=== PATIENT | female | born 1950 | race Hispanic/Latino ===

== ENCOUNTER 2016-07-31 17:24 | Inpatient (IN) | payer MEDICARE ==
[2016-07-31] MEDS ORDERED: ATROVENT IH ONE ×2 (17:50→21:06)
[2016-07-31] MEDS ORDERED: PROVENTIL IH ONE ×2 (17:50→21:06)
--- NOTE | 2016-07-31 17:56 | Emergency Department Report ---
HPI - General Chief Complaint: Dyspnea/Respdistress Time Seen by Provider: 07/31/16 17:45 - HPI HPI: Room 3 The patient is a 66-year-old female presenting with a chief complaint of shortness of breath. The patient is status post cataract surgery today. The patient states after the surgery and while walking down a hallway she began to "feel yucky" developed shortness of breath. The patient was asked to sit down and had O2 applied. Patient denied chest pain or pleurisy at any time. The patient states the shortness of breath feels consistent with her COPD Location: Lungs Duration: [see above] Quality: Some breath, similar to previous bouts of COPD Severity: Moderate Modifying factors: [see above] Context: [see above] Mode of transportation: [not driving] ED Past Medical Hx - Past Medical History Previous Medical History?: Yes Hx COPD: Yes (2 L O2 prn) - Surgical History Past Surgical History?: Yes Additional Surgical History: cataract sx (07/31/16) - Family History Family history: no significant - Social History Smoking Status: Former Smoker (none 4.5 years) Substance Use Type: Alcohol (occasional) ED Review of Systems ROS: Stated complaint: SHORTNESS OF BREATH Other details as noted in HPI Comment: All other systems reviewed and negative Constitutional: denies: chills, fever Eyes: denies: eye pain, eye discharge, vision change ENT: denies: ear pain, throat pain Respiratory: shortness of breath Cardiovascular: denies: chest pain Endocrine: no symptoms reported Gastrointestinal: denies: abdominal pain, nausea, diarrhea Genitourinary: denies: urgency, dysuria, discharge Musculoskeletal: denies: back pain, joint swelling, arthralgia Skin: denies: rash, lesions Neurological: denies: headache, weakness, paresthesias Psychiatric: denies: anxiety, depression Hematological/Lymphatic: denies: easy bleeding, easy bruising Physical Exam - Physical Exam Vital Signs: Vital Signs 07/31/16 17:29 Temperature 97.7 F Pulse Rate 94 H Respiratory 26 H Rate Blood Pressure 119/78 O2 Sat by Pulse 97 Oximetry Physical Exam: GENERAL: The patient is well-developed well-nourished elderly female lying on stretcher with postop sunshades in place. [] HEENT: Normocephalic. Atraumatic. NECK: Supple. Trachea midline CHEST/LUNGS: Diminished throughout. Slightly increased work of breathing HEART/CARDIOVASCULAR: Regular. There is tachycardia. There is no gallop rub or murmur. ABDOMEN: There is no abdominal distention. SKIN: There is no rash. There is no edema. There is no diaphoresis. NEURO: The patient is awake, alert, and oriented. The patient is cooperative. The patient has normal speech MUSCULOSKELETAL: There is no evidence of acute injury. ED Course Vital Signs 07/31/16 17:29 Temperature 97.7 F Pulse Rate 94 H Respiratory 26 H Rate Blood Pressure 119/78 O2 Sat by Pulse 97 Oximetry - Reevaluation(s) Reevaluation #1: 07/31/16 19:20 Patient states she only feels slightly improved but still has shortness of breath. Patient still has increased work of breathing. Patient reports a normal echocardiogram last week however her proBNP is elevated today. Will obtain a CT angiogram of the chest to rule out PE Reevaluation #2: 07/31/16 21:07 Patient continues to have increased work of breathing. Will admit the patient to the hospital ED Medical Decision Making - Lab Data Result diagrams: 07/31/16 17:58 07/31/16 17:58 Laboratory Tests 07/31/16 07/31/16 07/31/16 17:58 17:58 17:58 WBC 7.8 RBC 3.33 L Hgb 11.0 Hct 33.2 MCV 100 H MCH 33 H MCHC 33 RDW 13.5 Plt Count 190 Lymph % (Auto) 7.9 L [place] % (Auto) 3.8 Eos % (Auto) 1.3 Baso % (Auto) 0.2 Lymph # 0.6 L [place] # 0.3 Eos # 0.1 Baso # 0.0 Seg Neutrophils % 86.8 H Seg Neutrophils # 6.7 PT 13.8 INR 1.07 APTT 29.2 Sodium 139 Potassium 4.4 Chloride 96.7 L Carbon Dioxide 32 H Anion Gap 15 BUN 9 Creatinine 0.4 L Estimated GFR > 60 BUN/Creatinine Ratio 22.50 Glucose 166 H Calcium 8.8 Total Creatine Kinase 87 CK-MB (CK-2) 5.2 H CK-MB (CK-2) Rel Index 5.9 H Troponin T < 0.010 NT-Pro-B Natriuret Pep 1078 H - EKG Data -: EKG Interpreted by Me EKG shows normal: sinus rhythm Rate: tachycardia (105 bpm) - EKG Data When compared to previous EKG there are: previous EKG unavailable Interpretation: other (no ischemic changes seen) - Radiology Data Radiology results: report reviewed (CT chest), image reviewed (chest x-ray, CT chest) interpreted by me: Chest x-ray-no definite focal infiltrates, no pneumothorax. Consistent with COPD CT chest (read by radiologist)-no evidence for pulmonary embolism. Extensive emphysematous changes with probable underlying chronic interstitial fibrosis. Small 4 mm subpleural nodule in the lateral left base follow-up exam in 6 months is suggested. - Differential Diagnosis COPD, pneumonia, pneumothorax, CHF Critical care attestation.: If time is entered above; I have spent that time in minutes in the direct care of this critically ill patient, excluding procedure time. ED Disposition Clinical Impression: Shortness of breath, COPD exacerbation Disposition: OP ADMITTED IP TO THIS HOSP Is pt being admited?: Yes Does the pt Need Aspirin: Yes Condition: Fair Instructions: Chronic Obstructive Pulmonary Disease (ED) Referrals: PRIMARY CARE, [Primary Care Provider] - 3-5 Days Time of Disposition: 21:09 (hospitalist paged)
[2016-07-31 18:26] LABS: INR 1.07 (0.87-1.13); Partial Thromboplastin Time 29.2 Sec. (24.2-36.6)
[2016-07-31 18:32] LABS: Creatine Kinase MB 5.2 ng/mL (0.0-4.0)
[2016-07-31 18:33] LABS: Anion Gap 15 mmol/L; Blood Urea Nitrogen 9 mg/dL (7-17); Calcium 8.8 mg/dL (8.4-10.2); Carbon Dioxide 32 mmol/L (22-30); Chloride 96.7 mmol/L (98-107); Creatine Kinase 87 units/L (30-135); Glucose 166 mg/dL (65-100); Potassium 4.4 mmol/L (3.6-5.0); Sodium 139 mmol/L (137-145)
[2016-07-31 18:46] LABS: Basophils % (Auto) 0.2 % (0.0-1.8); Eosinophils % (Auto) 1.3 % (0.0-4.3); Hematocrit 33.2 % (30.3-42.9); Mean Corpuscular HGB Conc 33 % (30-34); Mean Corpuscular Hemoglobin 33 pg (28-32); Mean Corpuscular Volume 100 fl (79-97); Platelet Count 190 K/mm3 (140-440); Red Blood Count 3.33 M/mm3 (3.65-5.03); Red Cell Distribution Width 13.5 % (13.2-15.2); White Blood Count 7.8 K/mm3 (4.5-11.0)
[2016-07-31] MEDS ORDERED: NACL ONE (19:17)
--- NOTE | 2016-07-31 20:17 | Admit Criteria Form ---
Admission Criteria Documentation: COPD Clinical Indications for Admission to Inpatient Care (Place 'X' for any and all applicable criteria): Admission is indicated for ANY ONE of the following (1)(2)(3): [ ]I. Acute exacerbation by high-risk comorbidity (e.g., pneumonia, dysrhythmia, heart failure, pleural effusion, pneumothorax) or severe underlying COPD (e.g., steroid dependent) [X]II. Inpatient admission required rather than observation care (see Chronic Obstructive Pulmonary Disease: Observation Care) because of ANY ONE of the following: [ X]a) New or pre-existing signs or symptoms of COPD (eg, dyspnea or Tachypnea at rest or with minimal activity) that persist despite outpatient and observation care treatment [ ]b) New-onset hypoxemia (room air SaO2 less than 90%, PO2 less than 60 mm Hg (8.0 kPa)) that persists despite outpatient and observation care treatment [ ]c) Worsening of pre-existing hypoxemia (eg, new or increased requirement for supplemental oxygen to maintain oxygenation at baseline level) that persists despite outpatient and observation care treatment, with oxygen treatment needs performable only in acute inpatient setting [ ]d) Hypercarbia (PCO2 greater than 40 mm Hg (5.3 kPa))-induced respiratory acidosis (pH less than 7.35) that persists despite outpatient and observation care treatment [ ]e) Supplemental oxygen or respiratory treatments for over 24 hours that are performable only in acute inpatient setting [ ]f) Chest tube placement with active evacuation (e.g., suction, drainage) (5) [ ]g) Other condition, treatment or monitoring requiring inpatient admission [ ]III. Planned invasive surgical or diagnostic procedures requiring acute- care hospitalization [ ]IV. Acute respiratory failure (e.g., uncompensated hypercarbia, severe hypoxemia) [ ]V. Severe comorbid condition (e.g., severe steroid myopathy, acute vertebral fracture) that has acutely worsened pulmonary function [ ]. Confusion state, lethargy, obtundation, stupor or coma Extended stay beyond goal length of stay may be needed for (31)(32): [ ]a ) Respiratory Failure. [ ]b) Severe or persisting hypoxemia or hypercarbia [ ]c) Severe or persistent dyspnea [ ]d) Comorbidities (e.g. chronic heart failure, atrial fibrillation with rapid response, pneumonia) [ ]e) Malnutrition The original [facility] content created by [facility] has been revised. The portions of the content which have been revised are identified through the use of italic text or in bold, and [facility] has neither reviewed nor approved the modified material. All other unmodified content is copyright [facility]. Please see references footnoted in the original [facility] edition 2016 Admission Criteria Met: Yes
--- NOTE | 2016-07-31 20:39 | Cat Scan Report ---
FINAL REPORT EXAM: CT ANGIO CHEST HISTORY: shortness of breath TECHNIQUE: Enhanced CT of the chest at 1.25 mm axial intervals following a pulmonary embolism protocol. Coronal and sagittal imaging were also obtained. Coronal oblique MIP projections were obtained. Contrast: 100 ml of Omnipaque 350 given IV. PRIORS: None. FINDINGS: There is no evidence for pulmonary embolism in the main pulmonary artery, right and left pulmonary arteries or their major distributions. However, CT does not exclude distal pulmonary emboli. There is extensive emphysematous changes noted bilaterally. There is a diffuse interstitial prominence noted bilaterally, probably chronic. There is a subpleural 4 mm nodule in the lateral left base (axial image 107). Otherwise, the lung parenchyma are expanded and clear with no evidence for parenchymal infiltrates, congestion, or pleural effusion. There is no evidence for mediastinal, hilar, or axillary adenopathy. Cardiovascular structures are within normal limits. Images through the lung bases include the upper abdomen which show no abnormalities of the visualized abdominal viscera. Bony structures demonstrate no focal abnormalities. IMPRESSION: 1. no evidence for pulmonary embolism. 2. Extensive emphysematous changes with probable underlying chronic interstitial fibrosis 3. Small 4 millimeter subpleural nodule in the lateral left base. Follow-up exam in 6 months is suggested the patient has a prior history of smoking or neoplasm.
[2016-07-31] MEDS ORDERED: MILK OF MAGNESIA PO PRN (21:39)
[2016-07-31] MEDS ORDERED: ZOFRAN IV PRN (21:39)
[2016-07-31] MEDS ORDERED: DULCOLAX PR PRN (21:39)
--- NOTE | 2016-07-31 21:45 | History and Physical Report ---
History of Present Illness Date of examination: 07/31/16 History of present illness: 66 year old woman with history of COPD on home oxygen, 2L comes to the emergency room today because after cataract surgery she became short of breath Patient denies chest pain, palpitation, cough, abdominal pain, hematochezia, dysuria, frequency, focal weakness, dysarthria, fever chills, polydipsia polyuria, hot or cold intolerance, easy bruisability, or rash or bleeding from mucosal membrane, rhinorrhea, epistaxis, earache, tinnitus, blurry vision, eye discharge, anxiety, depression. Other review of systems negative PAST SURGICAL HISTORY: Cataract extraction SOCIAL HISTORY: Denies alcohol, tobacco, drugs FAMILY HISTORY: Hypertension Medications and Allergies Allergies Allergy/AdvReac Type Severity Reaction Status Date / Time Androgenic Anabolic Steroid Allergy Unknown Verified 07/31/16 17:36 Active Meds: Active Medications Acetaminophen (Tylenol) 650 mg PO Q4H PRN PRN Reason: Pain MILD(1-3)/Fever >100.5/PARKS Albuterol/Ipratropium (Duoneb 0.5 Mg-3 Mg/3 Ml Soln) 1 ampul IH Q6HRT JEAN Bisacodyl (Dulcolax) 10 mg [place] QDAY PRN PRN Reason: Constipation unrelieved by MOM Enoxaparin Sodium (Lovenox) 30 mg SUB-Q QDAY JEAN Magnesium Hydroxide (Milk Of Magnesia) 30 ml PO Q4H PRN PRN Reason: Constipation Methylprednisolone Sodium Succinate (Solu-Medrol) 125 mg IV Q6H JEAN Ondansetron HCl (Zofran) 4 mg IV Q8H PRN PRN Reason: N/V unrelieved by Reglan Exam - Physical Exam Narrative exam: Gen. appearance: Patient lying in bed, no apparent distress HEENT: Normocephalic, atraumatic, pupils equally round and reactive to light, extraocular movement intact, and no sclericterus,. No JVD or thyromegaly or nodule,neck supple, no carotid bruit ,mucous membranes moist, no exudate or erythema Heart: S1, S2, regular rate and rhythm Lungs: Clear to auscultation bilaterally, breathing comfortable Abdomen: Positive bowel sounds, nontender, nondistended, no organomegaly Extremity: No edema, cyanosis, clubbing Skin: No rash, nodules, warm, dry Neuro: Oriented 3, cranial nerves II-12 intact, speech is fluent, motor and sensory intact - Constitutional Vitals: Temp Pulse Resp BP Pulse Ox 97.7 F 85 20 119/78 97 07/31/16 17:29 07/31/16 18:16 07/31/16 18:16 07/31/16 17:29 07/31/16 17:29 Results - Labs CBC & Chem 7: 07/31/16 17:58 07/31/16 17:58 Labs: Abnormal lab results 07/31/16 07/31/16 Range/Units 17:58 17:58 RBC 3.33 L (3.65-5.03) M/mm3 MCV 100 H (79-97) fl MCH 33 H (28-32) pg Lymph % (Auto) 7.9 L (13.4-35.0) % Lymph # 0.6 L (1.2-5.4) K/mm3 Seg Neutrophils % 86.8 H (40.0-70.0) % Chloride 96.7 L (98-107) mmol/L Carbon Dioxide 32 H (22-30) mmol/L Creatinine 0.4 L (0.7-1.2) mg/dL Glucose 166 H (65-100) mg/dL CK-MB (CK-2) 5.2 H (0.0-4.0) ng/mL CK-MB (CK-2) Rel Index 5.9 H (0-4) NT-Pro-B Natriuret Pep 1078 H (0-900) pg/mL - Imaging and Cardiology EKG: image reviewed Chest x-ray: image reviewed CT scan - chest: report reviewed Assessment and Plan COPD exacerbation Small lung nodule Status post cataract extraction Admit to medicine Start IV steroids, nebulizer treatments Follow up outpatient for small lung nodule Hold Lovenox for now
[2016-08-01] MEDS: DUONEB 0.5 MG-3 MG/3 ML SOLN IH SCH ×4 (03:18→21:10)
[2016-08-01 05:43] LABS: Hematocrit 33.8 % (30.3-42.9); Hemoglobin 11.2 gm/dl (10.1-14.3); Mean Corpuscular HGB Conc 33 % (30-34); Mean Corpuscular Hemoglobin 33 pg (28-32); Mean Corpuscular Volume 101 fl (79-97); Platelet Count 171 K/mm3 (140-440); Red Blood Count 3.36 M/mm3 (3.65-5.03); Red Cell Distribution Width 13.4 % (13.2-15.2); White Blood Count 4.9 K/mm3 (4.5-11.0)
[2016-08-01 06:06] LABS: Anion Gap 15 mmol/L; Blood Urea Nitrogen 10 mg/dL (7-17); Calcium 9.1 mg/dL (8.4-10.2); Carbon Dioxide 34 mmol/L (22-30); Chloride 99.4 mmol/L (98-107); Glucose 135 mg/dL (65-100); Potassium 4.4 mmol/L (3.6-5.0); Sodium 144 mmol/L (137-145)
[2016-08-01 06:42] LABS: Basophils % (Manual) 0 % (0.0-1.8); Blastocytes % (Manual) 0 %; Eosinophils % (Manual) 0 % (0.0-4.3); Total Cells Counted Percent 0
[2016-08-01 06:46] LABS: Anisocytosis 1+; Diff Status Complete; Stomatocytes Few
[2016-08-01] MEDS ORDERED: LOVENOX SUB-Q SCH (10:00)
--- NOTE | 2016-08-01 10:32 | XRay Report ---
AP chest x-ray. Findings: The lungs are hyperinflated and free of acute infiltrates. Mild accentuation of interstitial markings is seen. The heart and pulmonary vessels are normal. No pleural fluid is seen. Impression: COPD. No acute findings.
--- NOTE | 2016-08-01 13:43 | Progress Note ---
Assessment and Plan Assessment and plan: 66 year old woman with history of COPD on home oxygen, 2L comes to the emergency room today because after cataract surgery she became short of breath Patient denies chest pain, palpitation, cough, abdominal pain, hematochezia, dysuria, frequency, focal weakness, dysarthria, fever chills, polydipsia polyuria, hot or cold intolerance, easy bruisability, or rash or bleeding from mucosal membrane, rhinorrhea, epistaxis, earache, tinnitus, blurry vision, eye discharge, anxiety, depression. Other review of systems negative COPD exacerbation Continue steroids and nebs and antibiotics Acute on chronic hypoxic respiratory failure Continue oxygen supplementation Anxiety disorder/Panic Disorder started low dose benzodiazepines Moderate malnutrition/cachexia Patient has been encouraged to eat a balanced diet high in fats and proteins History Interval history: sob is improved, denies fever coughing or wheezing, states that she is not doing well at baseline Hospitalist Physical - Physical exam Narrative exam: General: Cachectic, unable to speak in complete sentences , appears anxious HEENT: MMM, EOMI cardiac: S1-S2 heard lungs: poor air entry, no wheezing abdomen: soft, nontender, nondistended bowel sounds positive extremities: no edema clubbing or cyanosis Skin: no rash or lesion Neuro: no focal deficit Psych: appropriate behavior and mood, cognition intact - Constitutional Vitals: Temp Pulse Resp BP Pulse Ox 98.3 F 102 H 16 102/58 100 08/01/16 08:27 08/01/16 13:21 08/01/16 13:21 08/01/16 08:27 08/01/16 08:27 Results - Labs CBC & Chem 7: 08/01/16 05:24 08/01/16 05:24 Labs: Laboratory Last Values WBC 4.9 K/mm3 (4.5-11.0) 08/01/16 05:24 RBC 3.36 M/mm3 (3.65-5.03) L 08/01/16 05:24 Hgb 11.2 gm/dl (10.1-14.3) 08/01/16 05:24 Hct 33.8 % (30.3-42.9) 08/01/16 05:24 MCV 101 fl (79-97) H 08/01/16 05:24 MCH 33 pg (28-32) H 08/01/16 05:24 MCHC 33 % (30-34) 08/01/16 05:24 RDW 13.4 % (13.2-15.2) 08/01/16 05:24 Plt Count 171 K/mm3 (140-440) 08/01/16 05:24 Lymph % (Auto) 7.9 % (13.4-35.0) L 07/31/16 17:58 [place] % (Auto) 3.8 % (0.0-7.3) 07/31/16 17:58 Eos % (Auto) 1.3 % (0.0-4.3) 07/31/16 17:58 Baso % (Auto) 0.2 % (0.0-1.8) 07/31/16 17:58 Lymph # 0.6 K/mm3 (1.2-5.4) L 07/31/16 17:58 [place] # 0.3 K/mm3 (0.0-0.8) 07/31/16 17:58 Eos # 0.1 K/mm3 (0.0-0.4) 07/31/16 17:58 Baso # 0.0 K/mm3 (0.0-0.1) 07/31/16 17:58 Add Manual Diff Complete 08/01/16 05:24 Total Counted 100 08/01/16 05:24 Seg Neutrophils % Salesperson Wigs 08/01/16 05:24 Seg Neuts % (Manual) 91.0 % (40.0-70.0) H 08/01/16 05:24 Band Neutrophils % 0 % 08/01/16 05:24 Lymphocytes % (Manual) 9.0 % (13.4-35.0) L 08/01/16 05:24 Reactive Lymphs % (Man) 0 % 08/01/16 05:24 Monocytes % (Manual) 0 % (0.0-7.3) 08/01/16 05:24 Eosinophils % (Manual) 0 % (0.0-4.3) 08/01/16 05:24 Basophils % (Manual) 0 % (0.0-1.8) 08/01/16 05:24 Metamyelocytes % 0 % 08/01/16 05:24 Myelocytes % 0 % 08/01/16 05:24 Promyelocytes % 0 % 08/01/16 05:24 Blast Cells % 0 % 08/01/16 05:24 Nucleated RBC % Not Reportable 08/01/16 05:24 Seg Neutrophils # 6.7 K/mm3 (1.8-7.7) 07/31/16 17:58 Seg Neutrophils # Man 4.5 K/mm3 (1.8-7.7) 08/01/16 05:24 Band Neutrophils # 0.0 K/mm3 08/01/16 05:24 Lymphocytes # (Manual) 0.4 K/mm3 (1.2-5.4) L 08/01/16 05:24 Abs React Lymphs (Man) 0.0 K/mm3 08/01/16 05:24 Monocytes # (Manual) 0.0 K/mm3 (0.0-0.8) 08/01/16 05:24 Eosinophils # (Manual) 0.0 K/mm3 (0.0-0.4) 08/01/16 05:24 Basophils # (Manual) 0.0 K/mm3 (0.0-0.1) 08/01/16 05:24 Metamyelocytes # 0.0 K/mm3 08/01/16 05:24 Myelocytes # 0.0 K/mm3 08/01/16 05:24 Promyelocytes # 0.0 K/mm3 08/01/16 05:24 Blast Cells # 0.0 K/mm3 08/01/16 05:24 WBC Morphology Not Reportable 08/01/16 05:24 Hypersegmented Neuts Not Reportable 08/01/16 05:24 Hyposegmented Neuts Not Reportable 08/01/16 05:24 Hypogranular Neuts Not Reportable 08/01/16 05:24 Smudge Cells Not Reportable 08/01/16 05:24 Toxic Granulation Not Reportable 08/01/16 05:24 Toxic Vacuolation Not Reportable 08/01/16 05:24 Dohle Bodies Not Reportable 08/01/16 05:24 Pelger-Huet Anomaly Not Reportable 08/01/16 05:24 Kamille Rods Not Reportable 08/01/16 05:24 Platelet Estimate Appears normal 08/01/16 05:24 Clumped Platelets Not Reportable 08/01/16 05:24 Plt Clumps, EDTA Not Reportable 08/01/16 05:24 Large Platelets Not Reportable 08/01/16 05:24 Giant Platelets Not Reportable 08/01/16 05:24 Platelet Satelliting Not Reportable 08/01/16 05:24 Plt Morphology Comment Not Reportable 08/01/16 05:24 RBC Morphology Not Reportable 08/01/16 05:24 Dimorphic RBCs Not Reportable 08/01/16 05:24 Polychromasia Not Reportable 08/01/16 05:24 Hypochromasia Not Reportable 08/01/16 05:24 Poikilocytosis Not Reportable 08/01/16 05:24 Anisocytosis 1+ 08/01/16 05:24 Microcytosis Not Reportable 08/01/16 05:24 Macrocytosis Not Reportable 08/01/16 05:24 Spherocytes Not Reportable 08/01/16 05:24 Pappenheimer Bodies Not Reportable 08/01/16 05:24 Sickle Cells Not Reportable 08/01/16 05:24 Target Cells Not Reportable 08/01/16 05:24 Tear Drop Cells Not Reportable 08/01/16 05:24 Ovalocytes Not Reportable 08/01/16 05:24 Stomatocytes Few 08/01/16 05:24 Helmet Cells Not Reportable 08/01/16 05:24 [place] Bodies Not Reportable 08/01/16 05:24 [place] Rings Not Reportable 08/01/16 05:24 [place] Cells Not Reportable 08/01/16 05:24 Bite Cells Not Reportable 08/01/16 05:24 Crenated Cell Not Reportable 08/01/16 05:24 Elliptocytes Not Reportable 08/01/16 05:24 Acanthocytes (Spur) Not Reportable 08/01/16 05:24 Rouleaux Not Reportable 08/01/16 05:24 Hemoglobin C Crystals Not Reportable 08/01/16 05:24 Schistocytes Not Reportable 08/01/16 05:24 Malaria parasites Not Reportable 08/01/16 05:24 Wilfrid Bodies Not Reportable 08/01/16 05:24 Hem Pathologist Commnt No 08/01/16 05:24 PT 13.8 Sec. (12.2-14.9) 07/31/16 17:58 INR 1.07 (0.87-1.13) 07/31/16 17:58 APTT 29.2 Sec. (24.2-36.6) 07/31/16 17:58 Sodium 144 mmol/L (137-145) 08/01/16 05:24 Potassium 4.4 mmol/L (3.6-5.0) 08/01/16 05:24 Chloride 99.4 mmol/L (98-107) 08/01/16 05:24 Carbon Dioxide 34 mmol/L (22-30) H 08/01/16 05:24 Anion Gap 15 mmol/L 08/01/16 05:24 BUN 10 mg/dL (7-17) 08/01/16 05:24 Creatinine 0.4 mg/dL (0.7-1.2) L 08/01/16 05:24 Estimated GFR > 60 ml/min 08/01/16 05:24 BUN/Creatinine Ratio 25.00 % 08/01/16 05:24 Glucose 135 mg/dL (65-100) H 08/01/16 05:24 POC Glucose 150 (70-105) H 07/31/16 21:09 Calcium 9.1 mg/dL (8.4-10.2) 08/01/16 05:24 Total Creatine Kinase 87 units/L (30-135) 07/31/16 17:58 CK-MB (CK-2) 5.2 ng/mL (0.0-4.0) H 07/31/16 17:58 CK-MB (CK-2) Rel Index 5.9 (0-4) H 07/31/16 17:58 Troponin T < 0.010 ng/mL (0.00-0.029) 07/31/16 17:58 NT-Pro-B Natriuret Pep 1078 pg/mL (0-900) H 07/31/16 17:58
[2016-08-01] MEDS ORDERED: ATIVAN PO PRN (15:18)
[2016-08-01] MEDS: TYLENOL PO PRN (21:27)
[2016-08-02] MEDS: DUONEB 0.5 MG-3 MG/3 ML SOLN IH SCH ×4 (02:02→20:38)
--- NOTE | 2016-08-02 10:36 | Consultation ---
History of Present Illness Consult date: 08/02/16 Requesting physician: TK ISLAS Reason for consult: COPD History of present illness: 66 y/o female, followed by Dr. Shetty admitted yesterday with what was thought to be an acute exacerbation of COPD. Per report from patient and daughter at bedside. Had Cataract Surgery on Saturday. Had an acute episode of shortness of breath post op. was not placed on her home dose of 2LPM pre or post surgery per patient. She has not missed any meds and felt fine prior to the procedure. She was given steroids and neb treatments and admitted. CTA was done as well to rule out PE Past History Past Medical History: COPD Past Surgical History: Other (heart cath) Social history: no significant social history, Family history: no significant family history Medications and Allergies Allergies Allergy/AdvReac Type Severity Reaction Status Date / Time Androgenic Anabolic Steroid Allergy Unknown Verified 07/31/16 17:36 Home Medications Medication Instructions Recorded Confirmed Last Taken Type Stiolto Respimat Inhal [place] 3.124 mcg INHALATION DAILY 08/01/16 08/01/16 Unknown History Ventolin HFA 90 mcg INHALATION 4XD 08/01/16 08/01/16 Unknown History Active Meds: Active Medications Acetaminophen (Tylenol) 650 mg PO Q4H PRN PRN Reason: Pain MILD(1-3)/Fever >100.5/PARKS Last Admin: 08/01/16 21:27 Dose: 650 mg Albuterol/Ipratropium (Duoneb 0.5 Mg-3 Mg/3 Ml Soln) 1 ampul IH Q6HRT JEAN Last Admin: 08/02/16 08:23 Dose: 1 ampul Arformoterol Tartrate (Brovana Nebu) 15 mcg IH Q12HRT JEAN Bisacodyl (Dulcolax) 10 mg [place] QDAY PRN PRN Reason: Constipation unrelieved by MOM Budesonide (Pulmicort) 0.5 mg IH Q12HRT JEAN Lorazepam (Ativan) 0.5 mg PO Q8H JEAN Magnesium Hydroxide (Milk Of Magnesia) 30 ml PO Q4H PRN PRN Reason: Constipation Methylprednisolone Sodium Succinate (Solu-Medrol) 40 mg IV Q24H JEAN Last Admin: 08/01/16 18:00 Dose: 40 mg Ondansetron HCl (Zofran) 4 mg IV Q8H PRN PRN Reason: N/V unrelieved by Reglan Review of Systems All systems: negative Psychiatric: anxiety, insomnia, change in appetite, anxiety attacks, difficulties concentrating Physical Examination Vital signs: Vital Signs Temp Pulse Resp BP Pulse Ox 97.7 F 94 H 26 H 119/78 97 07/31/16 17:29 07/31/16 17:29 07/31/16 17:29 07/31/16 17:29 07/31/16 17:29 General appearance: no acute distress, alert, other (thin cachetic) Eyes: non-icteric ENT: oropharynx moist Neck: supple Effort: normal Ascultation: Bilateral: diminished breath sounds Percussion: Bilateral: not dull Tactile fremitus: Bilateral: normal Cardiovascular: regular rate and rhythm Gastrointestinal: normoactive bowel sounds Integumentary: normal Extremities: no edema Musculoskeletal: other (severe scoliosis) normal mental status, non-focal exam mood appropriate, affect normal Results - Laboratory Findings CBC and BMP: 08/01/16 05:24 08/01/16 05:24 PT/INR, D-dimer PT 13.8 Sec. (12.2-14.9) 07/31/16 17:58 INR 1.07 (0.87-1.13) 07/31/16 17:58 Abnormal lab findings: Abnormal Labs 08/01/16 08/01/16 05:24 05:24 RBC 3.36 L MCV 101 H MCH 33 H Seg Neuts % (Manual) 91.0 H Lymphocytes % (Manual) 9.0 L Lymphocytes # (Manual) 0.4 L Carbon Dioxide 34 H Creatinine 0.4 L Glucose 135 H - Diagnostic Findings CT scan - chest: image reviewed (Severe emphysematous changes throughout with some scarring) Assessment and Plan 66 y/o female with COPD and chronic respiratory failure, likely with anxiety attack and COPD exacerbation stemming from that. 1. Will add Pulmicort and brovana BID 2. Scheduled ativan every 8 hours 3. Continue duoneb therapy 4. PT and OT consult placed 5. Continue supplemental oxygen 6. May need to consider psych eval to help with anxiety but discuss with daughter first.
[2016-08-02] MEDS: BROVANA NEBU IH SCH ×2 (12:08→20:38)
[2016-08-02] MEDS: PULMICORT IH SCH ×2 (12:09→20:38)
--- NOTE | 2016-08-02 12:22 | Discharge Summary ---
Providers - Providers Date of Admission: 07/31/16 21:39 Attending physician: TK ISLAS MD 08/01/16 15:22 Consult to Physician [CONS] Routine Consulting Provider: STACEY SMITH Reason For Exam: copd Place consult to:: dr. smith Notified:: office Phone number called:: Was contact made?: Yes Time called:: 16:31 08/02/16 10:30 Physical Therapy Evaluation and Treat [CONS] Routine Comment: Reason For Exam: Deconditioned with COPD 08/02/16 10:31 Occupational Therapy Evaluate and Treat [CONS] Routine Comment: Reason For Exam: Deconditioned with COPD Primary care physician: IMPROVEMENT ENGINEER Hospitalization Condition: Fair Hospital course: 66 year old woman with history of COPD on home oxygen, 2L comes to the emergency room today because after cataract surgery she became short of breath, upon arrival she was unable to speak in complete sentences without having severe dyspnea she was admitted for treatment of acute exacerbation of chronic COPD. She was treated with steroids, nebulizer, antibiotics. She clinically improved and her regimen of inhalers at home where optimized, home ambulatory oxygen was set up for her, pulmonary was involved in her care. It is very likely that panic disorder/anxiety disorder is contributing to her symptoms, differential is put on low-dose anxiety medications after which she clinically improved. She was advised on a balanced diets rich in fats and proteins for treatment of malnutrition. She clinically improved and is being sent home on steroids antibiotics and a new regimen of inhalers. Discharge diagnoses COPD exacerbation Acute on chronic hypoxic respiratory failure Anxiety/Panic disorder Moderate Malnutrition/cachexia Disposition: DISCHARGED TO HOME OR SELFCARE Time spent for discharge: 35 minutes Core Measure Documentation - Palliative Care Palliative Care/ Comfort Measures: Not Applicable - Core Measures Any of the following diagnoses?: none Exam - Constitutional Vitals: Temp Pulse Resp BP Pulse Ox 97.9 F 119 H 18 105/65 96 08/02/16 08:51 08/02/16 08:51 08/02/16 08:51 08/02/16 08:51 08/02/16 08:51 General appearance: Present: no acute distress, well-nourished - EENT Eyes: Present: PERRL ENT: hearing intact, clear oral mucosa - Neck Neck: Present: supple, normal ROM - Respiratory Respiratory effort: normal Respiratory: bilateral: CTA - Cardiovascular Heart Sounds: Present: S1 & S2. Absent: rub, click - Extremities Extremities: pulses symmetrical, No edema Peripheral Pulses: within normal limits - Abdominal General gastrointestinal: Present: soft, non-tender, non-distended, normal bowel sounds Female genitourinary: Present: normal - Integumentary Integumentary: Present: clear, warm, dry - Musculoskeletal Musculoskeletal: gait normal, strength equal bilaterally - Psychiatric Psychiatric: appropriate mood/affect, intact judgment & insight - Neurologic Neurologic: CNII-XII intact, moves all extremities Plan Follow up with: PRIMARY CARE,MD [Primary Care Provider] - 3-5 Days Prescriptions: Azithromycin [Zithromax Z-LOAN] 0 mg PO DAILY #1 pack Budesoni/Formotero 160-4.5(Nf) [Symbicort 160-4.5 (Nf)] 2 puff IH BID #1 inha LORazepam [Ativan] 0.5 mg PO Q8H #30 tablet Prednisone [predniSONE 5 mg (6-Day Pack, 21 Tabs)] 5 mg PO .TAPER #1 tab.ds.pk
[2016-08-02] MEDS: ATIVAN PO SCH ×2 (14:58→19:50)
[2016-08-02] MEDS: TYLENOL PO PRN (18:21)
--- NOTE | 2016-08-02 21:54 | Progress Note ---
Assessment and Plan Assessment and plan: 66 year old woman with history of COPD on home oxygen, 2L comes to the emergency room today because after cataract surgery she became short of breath Patient denies chest pain, palpitation, cough, abdominal pain, hematochezia, dysuria, frequency, focal weakness, dysarthria, fever chills, polydipsia polyuria, hot or cold intolerance, easy bruisability, or rash or bleeding from mucosal membrane, rhinorrhea, epistaxis, earache, tinnitus, blurry vision, eye discharge, anxiety, depression. Other review of systems negative COPD exacerbation Continue steroids and nebs and antibiotics Pulmonary input appreciated, she has been started on Brovana and Pulmicort, she' ll be switched to Symbicort upon discharge Acute on chronic hypoxic respiratory failure Continue oxygen supplementation, case management input appreciated, ambulatory oxygen has been set up through apnea Anxiety/Panic disorder continue benzos Malnutrition/cachexia Encouraged balanced diet History Interval history: Shortness of breath this improved, she is feeling less anxious today Hospitalist Physical - Physical exam Narrative exam: General: Cachectic, no distress HEENT: MMM, EOMI cardiac: S1-S2 heard lungs: poor air entry, no wheezing abdomen: soft, nontender, nondistended bowel sounds positive extremities: no edema clubbing or cyanosis Skin: no rash or lesion Neuro: no focal deficit Psych: appropriate behavior and mood, cognition intact - Constitutional Vitals: Temp Pulse Resp BP Pulse Ox 98.3 F 118 H 20 114/61 97 08/02/16 15:30 08/02/16 20:50 08/02/16 20:50 08/02/16 15:30 08/02/16 20:40 General appearance: Present: no acute distress, well-nourished Results - Labs CBC & Chem 7: 08/01/16 05:24 08/01/16 05:24 Labs: Laboratory Last Values WBC 4.9 K/mm3 (4.5-11.0) 08/01/16 05:24 RBC 3.36 M/mm3 (3.65-5.03) L 08/01/16 05:24 Hgb 11.2 gm/dl (10.1-14.3) 08/01/16 05:24 Hct 33.8 % (30.3-42.9) 08/01/16 05:24 MCV 101 fl (79-97) H 08/01/16 05:24 MCH 33 pg (28-32) H 08/01/16 05:24 MCHC 33 % (30-34) 08/01/16 05:24 RDW 13.4 % (13.2-15.2) 08/01/16 05:24 Plt Count 171 K/mm3 (140-440) 08/01/16 05:24 Lymph % (Auto) 7.9 % (13.4-35.0) L 07/31/16 17:58 [place] % (Auto) 3.8 % (0.0-7.3) 07/31/16 17:58 Eos % (Auto) 1.3 % (0.0-4.3) 07/31/16 17:58 Baso % (Auto) 0.2 % (0.0-1.8) 07/31/16 17:58 Lymph # 0.6 K/mm3 (1.2-5.4) L 07/31/16 17:58 [place] # 0.3 K/mm3 (0.0-0.8) 07/31/16 17:58 Eos # 0.1 K/mm3 (0.0-0.4) 07/31/16 17:58 Baso # 0.0 K/mm3 (0.0-0.1) 07/31/16 17:58 Add Manual Diff Complete 08/01/16 05:24 Total Counted 100 08/01/16 05:24 Seg Neutrophils % Head Of Cytogenetics 08/01/16 05:24 Seg Neuts % (Manual) 91.0 % (40.0-70.0) H 08/01/16 05:24 Band Neutrophils % 0 % 08/01/16 05:24 Lymphocytes % (Manual) 9.0 % (13.4-35.0) L 08/01/16 05:24 Reactive Lymphs % (Man) 0 % 08/01/16 05:24 Monocytes % (Manual) 0 % (0.0-7.3) 08/01/16 05:24 Eosinophils % (Manual) 0 % (0.0-4.3) 08/01/16 05:24 Basophils % (Manual) 0 % (0.0-1.8) 08/01/16 05:24 Metamyelocytes % 0 % 08/01/16 05:24 Myelocytes % 0 % 08/01/16 05:24 Promyelocytes % 0 % 08/01/16 05:24 Blast Cells % 0 % 08/01/16 05:24 Nucleated RBC % Not Reportable 08/01/16 05:24 Seg Neutrophils # 6.7 K/mm3 (1.8-7.7) 07/31/16 17:58 Seg Neutrophils # Man 4.5 K/mm3 (1.8-7.7) 08/01/16 05:24 Band Neutrophils # 0.0 K/mm3 08/01/16 05:24 Lymphocytes # (Manual) 0.4 K/mm3 (1.2-5.4) L 08/01/16 05:24 Abs React Lymphs (Man) 0.0 K/mm3 08/01/16 05:24 Monocytes # (Manual) 0.0 K/mm3 (0.0-0.8) 08/01/16 05:24 Eosinophils # (Manual) 0.0 K/mm3 (0.0-0.4) 08/01/16 05:24 Basophils # (Manual) 0.0 K/mm3 (0.0-0.1) 08/01/16 05:24 Metamyelocytes # 0.0 K/mm3 08/01/16 05:24 Myelocytes # 0.0 K/mm3 08/01/16 05:24 Promyelocytes # 0.0 K/mm3 08/01/16 05:24 Blast Cells # 0.0 K/mm3 08/01/16 05:24 WBC Morphology Not Reportable 08/01/16 05:24 Hypersegmented Neuts Not Reportable 08/01/16 05:24 Hyposegmented Neuts Not Reportable 08/01/16 05:24 Hypogranular Neuts Not Reportable 08/01/16 05:24 Smudge Cells Not Reportable 08/01/16 05:24 Toxic Granulation Not Reportable 08/01/16 05:24 Toxic Vacuolation Not Reportable 08/01/16 05:24 Dohle Bodies Not Reportable 08/01/16 05:24 Pelger-Huet Anomaly Not Reportable 08/01/16 05:24 Kamille Rods Not Reportable 08/01/16 05:24 Platelet Estimate Appears normal 08/01/16 05:24 Clumped Platelets Not Reportable 08/01/16 05:24 Plt Clumps, EDTA Not Reportable 08/01/16 05:24 Large Platelets Not Reportable 08/01/16 05:24 Giant Platelets Not Reportable 08/01/16 05:24 Platelet Satelliting Not Reportable 08/01/16 05:24 Plt Morphology Comment Not Reportable 08/01/16 05:24 RBC Morphology Not Reportable 08/01/16 05:24 Dimorphic RBCs Not Reportable 08/01/16 05:24 Polychromasia Not Reportable 08/01/16 05:24 Hypochromasia Not Reportable 08/01/16 05:24 Poikilocytosis Not Reportable 08/01/16 05:24 Anisocytosis 1+ 08/01/16 05:24 Microcytosis Not Reportable 08/01/16 05:24 Macrocytosis Not Reportable 08/01/16 05:24 Spherocytes Not Reportable 08/01/16 05:24 Pappenheimer Bodies Not Reportable 08/01/16 05:24 Sickle Cells Not Reportable 08/01/16 05:24 Target Cells Not Reportable 08/01/16 05:24 Tear Drop Cells Not Reportable 08/01/16 05:24 Ovalocytes Not Reportable 08/01/16 05:24 Stomatocytes Few 08/01/16 05:24 Helmet Cells Not Reportable 08/01/16 05:24 Lemus-[place] Bodies Not Reportable 08/01/16 05:24 [place] Rings Not Reportable 08/01/16 05:24 [place] Cells Not Reportable 08/01/16 05:24 Bite Cells Not Reportable 08/01/16 05:24 Crenated Cell Not Reportable 08/01/16 05:24 Elliptocytes Not Reportable 08/01/16 05:24 Acanthocytes (Spur) Not Reportable 08/01/16 05:24 Rouleaux Not Reportable 08/01/16 05:24 Hemoglobin C Crystals Not Reportable 08/01/16 05:24 Schistocytes Not Reportable 08/01/16 05:24 Malaria parasites Not Reportable 08/01/16 05:24 Wilfrid Bodies Not Reportable 08/01/16 05:24 Hem Pathologist Commnt No 08/01/16 05:24 PT 13.8 Sec. (12.2-14.9) 07/31/16 17:58 INR 1.07 (0.87-1.13) 07/31/16 17:58 APTT 29.2 Sec. (24.2-36.6) 07/31/16 17:58 Sodium 144 mmol/L (137-145) 08/01/16 05:24 Potassium 4.4 mmol/L (3.6-5.0) 08/01/16 05:24 Chloride 99.4 mmol/L (98-107) 08/01/16 05:24 Carbon Dioxide 34 mmol/L (22-30) H 08/01/16 05:24 Anion Gap 15 mmol/L 08/01/16 05:24 BUN 10 mg/dL (7-17) 08/01/16 05:24 Creatinine 0.4 mg/dL (0.7-1.2) L 08/01/16 05:24 Estimated GFR > 60 ml/min 08/01/16 05:24 BUN/Creatinine Ratio 25.00 % 08/01/16 05:24 Glucose 135 mg/dL (65-100) H 08/01/16 05:24 POC Glucose 150 (70-105) H 07/31/16 21:09 Calcium 9.1 mg/dL (8.4-10.2) 08/01/16 05:24 Total Creatine Kinase 87 units/L (30-135) 07/31/16 17:58 CK-MB (CK-2) 5.2 ng/mL (0.0-4.0) H 07/31/16 17:58 CK-MB (CK-2) Rel Index 5.9 (0-4) H 07/31/16 17:58 Troponin T < 0.010 ng/mL (0.00-0.029) 07/31/16 17:58 NT-Pro-B Natriuret Pep 1078 pg/mL (0-900) H 07/31/16 17:58
[2016-08-03] MEDS: DUONEB 0.5 MG-3 MG/3 ML SOLN IH SCH ×3 (01:54→13:41)
[2016-08-03] MEDS: ATIVAN PO SCH ×2 (04:42→12:11)
[2016-08-03] MEDS: BROVANA NEBU IH SCH (08:12)
[2016-08-03] MEDS: PULMICORT IH SCH (08:12)
--- NOTE | 2016-08-03 14:19 | Progress Note ---
Assessment and Plan 66 y/o female with COPD and chronic respiratory failure, likely with anxiety attack and COPD exacerbation stemming from that. 1. Would discharge on symbicort 160/4.5 2 puffs BID 2. Would discharge on PRN ativan 3. has ventolin inhaler already at home 4. OT recommends home health 5. Continue supplemental oxygen 6. No objection to discharge. Has appointment with us on Saturday. Subjective Date of service: 08/03/16 Interval history: No acute events. Feels better. Daughter at bedside. Tolerated addition of pulmicort and brovana Objective Vital Signs - 12hr 08/03/16 08/03/16 08/03/16 08:00 08:13 08:25 Temperature 98 F Pulse Rate [ 80 107 H Anterior Bilateral Throughout] Pulse Rate [ 88 Right Radial] Respiratory 20 Rate Respiratory 20 20 Rate [Anterior Bilateral Throughout] Blood Pressure 105/59 [Right Arm] O2 Sat by Pulse 97 95 Oximetry Constitutional: no acute distress, alert, other (thin cachetic) Eyes: non-icteric ENT: oropharynx moist Neck: supple Effort: normal Ascultation: Bilateral: diminished breath sounds Percussion: Bilateral: not dull Tactile fremitus: Bilateral: normal Cardiovascular: regular rate and rhythm Gastrointestinal: normoactive bowel sounds Integumentary: normal Extremities: no edema Neurologic: normal mental status, non-focal exam Psychiatric: mood appropriate, affect normal CBC and BMP: 08/01/16 05:24 08/01/16 05:24 ABG, PT/INR, D-dimer: PT/INR, D-dimer PT 13.8 Sec. (12.2-14.9) 07/31/16 17:58 INR 1.07 (0.87-1.13) 07/31/16 17:58 Abnormal lab findings: Abnormal Labs 08/01/16 08/01/16 05:24 05:24 RBC 3.36 L MCV 101 H MCH 33 H Seg Neuts % (Manual) 91.0 H Lymphocytes % (Manual) 9.0 L Lymphocytes # (Manual) 0.4 L Carbon Dioxide 34 H Creatinine 0.4 L Glucose 135 H
[2016-08-03 15:31] VITALS: BP 105/61
== END 2016-08-03 16:08 | disposition home or self-care (01) | DRG 189 ==
LOC: ED 17:24 → 3A 21:39
PROVIDERS: ADMIT Internal Medicine; ATTEND Internal Medicine
DX: J96.21 Acute and chronic respiratory failure with hypoxia (principal); J44.1 Chronic obstructive pulmonary disease with (acute) exacerbation; E44.0 Moderate protein-calorie malnutrition; R91.1 Solitary pulmonary nodule; F41.9 Anxiety disorder, unspecified; Z68.30 Body mass index [BMI] 30.0-30.9, adult; Z98.49 Cataract extraction status, unspecified eye; Z87.891 Personal history of nicotine dependence; Z82.49 Family history of ischemic heart disease and other diseases of the circulatory system; Z88.8 Allergy status to other drugs, medicaments and biological substances
CPT/HCPCS: 36415; 71010; 71275; 80048; 82550; 82553; 82962; 83880; 84484; 85007; 85025; 85610; 85730; 93005; 93010; 94640; 94760; 96374; J2920; J2930; Q9967